=== PATIENT | female | born 1960 | race African-American/Black ===

== ENCOUNTER 2021-09-20 16:50 | Outpatient (CLI) | payer BC ==
[2021-09-21 18:43] LABS: SARS-CoV-2 PCR by NAA Not Detected (NotDetected)
== END 2021-09-20 16:51 | disposition home or self-care (01) ==
LOC: CSHLAB 16:50
PROVIDERS: ATTEND Internal Medicine Gastroenterology
DX: Z20.822 Contact with and (suspected) exposure to COVID-19 (principal); Z12.11 Encounter for screening for malignant neoplasm of colon
CPT/HCPCS: U0003; U0005

== ENCOUNTER 2021-09-23 07:24 | Day surgery (SDC) | payer BC ==
[2021-09-20 11:04] VITALS: BMI 27.4
[2021-09-23] MEDS ORDERED: Lidocaine 1% MPF 2 ML VIAL ONE (08:19)
[2021-09-23] MEDS ORDERED: PROPOFOL 40 ML ONE ×2 (09:29→09:43)
== END 2021-09-23 11:20 | disposition home or self-care (01) ==
LOC: CSHSDC 07:24
PROVIDERS: ATTEND Internal Medicine Gastroenterology
PROC: 0DJD8ZZ Inspection of Lower Intestinal Tract, Via Natural or Artificial Opening Endoscopic (ICD-10-PCS; principal; 2021-09-23)
DX: Z12.11 Encounter for screening for malignant neoplasm of colon (principal); K57.30 Diverticulosis of large intestine without perforation or abscess without bleeding; K64.8 Other hemorrhoids; Z87.891 Personal history of nicotine dependence
CPT/HCPCS: J2704